=== PATIENT | female | born 1995 | race Caucasian/White ===

== ENCOUNTER 2016-09-11 19:35 | Emergency (ER) | payer OTHER ==
--- NOTE | 2016-09-11 20:27 | UC ---
Complaint Female HPI - HPI Summary HPI Summary: pain and burning with urination for 2 days no fever chills back pain or nausea/ vomiting - History Of Current Complaint Chief Complaint: UCGU Stated Complaint: POSS UTI Time Seen by Provider: 09/11/16 20:19 Hx Obtained From: Patient Hx Last Menstrual Period: 08/13/16 ?: No Onset/Duration: Sudden Onset, Lasting Days - 2, Still Present Timing: Constant Severity Initially: Moderate Severity Currently: Moderate Pain Intensity: 5 Pain Scale Used: 0-10 Numeric Character: Burning Aggravating Factor(s): Urination Alleviating Factor(s): Nothing - Allergies/Home Medications Allergies/Adverse Reactions: Allergies Allergy/AdvReac Type Severity Reaction Status Date / Time No Known Allergies Allergy Verified 03/24/16 14:43 PMH/Surg Hx/FS Hx/Imm Hx Previously Healthy: Yes - Surgical History Surgical History: None - Family History Known Family History: Positive: Other - no FHX of severe allergies or anaphylaxis Negative: Blood Disorder Family History: no known cardio vascular issues in family - Social History Occupation: Employed Full-time Lives: With Family Alcohol Use: Rare Substance Use Type: None Smoking Status (MU): Heavy Every Day Tobacco Smoker Type: Cigarettes Amount Used/How Often: 1 PPD Have You Smoked in the Last Year: Yes Household Exposure Type: Cigarettes Cessation Counseling: Patient Advised to Stop - Immunization History Most Recent Influenza Vaccination: 2014 Most Recent Tetanus Shot: unknown Review of Systems Constitutional: Negative Skin: Negative Eyes: Negative ENT: Negative Respiratory: Negative Cardiovascular: Negative Gastrointestinal: Negative Genitourinary: Dysuria, Frequency, Urgency Motor: Negative Neurovascular: Negative Musculoskeletal: Negative Neurological: Negative Psychological: Negative All Other Systems Reviewed And Are Negative: Yes Physical Exam Triage Information Reviewed: Yes Appearance: Well-Appearing, No Pain Distress, Well-Nourished Vital Signs: Initial Vital Signs Temp 97 F 09/11/16 20:05 Pulse 89 09/11/16 20:05 Resp 17 09/11/16 20:05 Pulse Ox 100 09/11/16 20:05 Vital Signs Reviewed: Yes Eye Exam: Normal Eyes: Positive: Conjunctiva Clear ENT Exam: Normal ENT: Positive: Normal ENT inspection, Hearing grossly normal, Pharynx normal, TMs normal. Negative: Nasal congestion, Nasal drainage, Tonsillar swelling, Tonsillar exudate, Trismus, Muffled/hoarse voice Dental Exam: Normal Neck exam: Normal Neck: Positive: Supple, Nontender Respiratory Exam: Normal Respiratory: Positive: Chest non-tender, Lungs clear, Normal breath sounds, No respiratory distress, No accessory muscle use Cardiovascular Exam: Normal Cardiovascular: Positive: RRR, No Murmur, Pulses Normal, Brisk Capillary Refill Abdominal Exam: Normal Abdomen Description: Negative: No Organomegaly, Soft, CVA Tenderness (R), CVA Tenderness (L) Bowel Sounds: Positive: Present Musculoskeletal Exam: Normal Musculoskeletal: Positive: Strength Intact, ROM Intact, No Edema Neurological Exam: Normal Neurological: Positive: Alert, Muscle Tone Normal Psychological Exam: Normal Skin Exam: Normal Diagnostics - Laboratory Diagnostic Studies Completed/Ordered: + 2 blood and Leuks Complaint Female Dx - Course Course Of Treatment: Bactrim, Azo, increase fluids, follow with pcp prn, culture urine - Differential Dx/Diagnosis Differential Diagnosis/HQI/PQRI: Renal Colic, Sexually Transmitted Disease, Ureteral Stone, Urinary Tract Infection Provider Diagnoses: UTI Discharge - Discharge Plan Condition: Stable Disposition: HOME Prescriptions: Sulfamethox/Trimethoprim DS* [Bactrim DS 800/160 TAB*] 1 tab PO BID #9 tab Patient Education Materials: Phenazopyridine (By mouth), Urinary Tract Infection in Women (ED) Referrals: Praveen Ellsworth MD [Primary Care Provider] - If Needed
[2016-09-11] MEDS ORDERED: Sulfamethox/Trimethoprim DS 800/160* TAB PO ONE (20:46)
[2016-09-11 21:08] VITALS: BP 133/78
== END 2016-09-11 21:08 | disposition home or self-care (01) ==
LOC: UCEAST 19:35
DX: N39.0 Urinary tract infection, site not specified (principal); F17.210 Nicotine dependence, cigarettes, uncomplicated
CPT/HCPCS: 81003; 84702; 87077; 87086; 87186; 99212; A9270-GY; G0463

== ENCOUNTER 2017-03-11 13:01 | Emergency (ER) | payer OTHER ==
[2017-03-11 14:33] VITALS: BP 125/75
--- NOTE | 2017-03-11 15:04 | UC ---
Back Pain HPI - HPI Summary HPI Summary: 22 yo female with a 4 week hx of diarrhea (at least 6 episodes a day) no blood in stool no wt loss no f/c abd feels bloated had severe bilateral mid thoracic pain today (states she almost called 911). Pain has since eased and is now a 4 no abd pain - History of Current Complaint Chief Complaint: UCBackPain Stated Complaint: MID BACK PAIN Hx Obtained From: Patient Hx Last Menstrual Period: 02/13/17 Onset/Duration: Sudden Onset, Lasting Hours Timing: Constant Severity Initially: Severe Severity Currently: Mild Pain Intensity: 4 Pain Scale Used: 0-10 Numeric Back Pain: Is Diffuse - see image Aggravating Factor(s): Movement, Lifting, Bending, Other - deep breath Associated Signs And Symptoms: Negative: Swelling, Redness, Bruising, Fever, Weakness, Numbness, Tingling, Abdominal Pain, Flank Pain, Bladder Incontinence, Bowel Incontinence, Weight Loss, Pain with Weight Bearing - Allergies/Home Medications Allergies/Adverse Reactions: Allergies Allergy/AdvReac Type Severity Reaction Status Date / Time No Known Allergies Allergy Verified 03/11/17 14:33 Home Medications: Home Medications Simvastatin TAB(NF) [Zocor 10 MG (NF)] 1 tab PO DAILY 03/11/17 [History Confirmed 03/11/17] PMH/Surg Hx/FS Hx/Imm Hx Previously Healthy: Yes - Surgical History Surgical History: None - Family History Known Family History: Positive: Hypertension, Other - no FHX of severe allergies or anaphylaxis Negative: Cardiac Disease, Blood Disorder Family History: no known cardio vascular issues in family - Social History Alcohol Use: Rare Substance Use Type: None Smoking Status (MU): Heavy Every Day Tobacco Smoker Type: Cigarettes Amount Used/How Often: 1 PPD Have You Smoked in the Last Year: Yes Household Exposure Type: Cigarettes - Immunization History Most Recent Influenza Vaccination: 12/2016 Most Recent Tetanus Shot: unknown Review of Systems Constitutional: Negative Skin: Negative Eyes: Negative ENT: Negative Respiratory: Negative Cardiovascular: Negative Gastrointestinal: Diarrhea - x 4 weeks Genitourinary: Negative Motor: Negative Neurovascular: Negative Musculoskeletal: Negative Neurological: Negative Psychological: Negative Is Patient Immunocompromised?: No All Other Systems Reviewed And Are Negative: Yes Physical Exam Triage Information Reviewed: Yes Appearance: Well-Appearing, No Pain Distress, Well-Nourished Vital Signs: Initial Vital Signs Temp 97.5 F 03/11/17 14:28 Pulse 82 03/11/17 14:28 Resp 16 03/11/17 14:28 BP 125/75 03/11/17 14:28 Pulse Ox 100 03/11/17 14:28 Vital Signs Reviewed: Yes Eyes: Positive: Conjunctiva Clear ENT: Positive: Hearing grossly normal, Pharynx normal, Uvula midline. Negative : Nasal congestion, Nasal drainage, Tonsillar swelling, Tonsillar exudate, Muffled voice, Hoarse voice, Sinus tenderness Neck exam: Normal Neck: Positive: Supple, Nontender, No Lymphadenopathy Respiratory: Positive: Lungs clear, Normal breath sounds, No respiratory distress, No accessory muscle use Cardiovascular: Positive: RRR, No Murmur Abdomen Description: Positive: Nontender, No Organomegaly, Soft. Negative: Bruit, CVA Tenderness (R), CVA Tenderness (L), Distended, Guarding, Hernia @, Hepatomegaly, McBurney's Point Tenderness, Peritoneal Signs, Pulsatile Mass, Splenomegaly Bowel Sounds: Positive: Present Musculoskeletal: Positive: Strength Intact, ROM Intact, No Edema Neurological: Positive: Alert Psychological Exam: Normal Skin Exam: Normal Back Pain Course/Dx - Differential Dx/Diagnosis Provider Diagnoses: back pain of uncertain cause. chronic diarrhea of uncertain cause Discharge - Discharge Plan Condition: Stable Disposition: HOME Prescriptions: Cyclobenzaprine TAB* [Flexeril TAB*] 5 mg PO TID PRN #15 tab PRN Reason: Spasms Patient Education Materials: Chronic Diarrhea (ED), Back Pain (ED) Forms: *Work Release Referrals: Alberto Walker MD [Medical Doctor] - If Needed (if your stool studies don't reveal a cause for your diarrhea you should see a specialist) Praveen Ellsworth MD [Primary Care Provider] - 1 Week Additional Instructions: tylenol or advil or aleve if needed for back pain a urine culture is pending blood work is pending recheck for new or worsening symptoms see GI specialist re diarrhea if stool studies negative bring in stool for studies Images Front/Back of Body, Lg (Lewis): 1 - pain located here/not tender/Full ROM
[2017-03-11 19:23] LABS: Hematocrit 38 % (35-47); Hemoglobin 12.9 g/dl (12.0-16.0); Mean Corpuscular HGB Conc 34 g/dl (31-36); Mean Corpuscular Hemoglobin 31 pg (27-31); Mean Corpuscular Volume 92 fL (80-97); Mean Platelet Volume 10 um3 (7.4-10.4); Red Blood Count 4.15 10^6/ul (4.0-5.4); Red Cell Distribution Width 13 % (10.5-15); White Blood Count 6.8 10^3/ul (3.5-10.8)
[2017-03-11 19:36] LABS: BUN/Creatinine Ratio 10.7 (8-20); EGFR Non-African American 65.8 (>60); Potassium 3.7 mmol/L (3.5-5.0)
[2017-03-11 19:37] LABS: Calcium 8.7 mg/dL (8.6-10.3); EGFR African American 84.7 (>60)
[2017-03-11 20:48] LABS: Erythrocyte Sed Rate 21 mm/Hr (0-14)
--- NOTE | 2017-03-12 08:03 | PN ---
Progress Note - Progress Note Date of Service: 03/11/17 Note: I called patient to follow up for the creatinine of 1.03 given her age. She reports she feel better. Instructed patient to follow up with her PMD. She was given a container for stool, and I instructed her to come with stool sample as soon as possible.
== END 2017-03-11 16:10 | disposition home or self-care (01) ==
LOC: UCEAST 13:01
DX: M54.6 Pain in thoracic spine (principal); K52.9 Noninfective gastroenteritis and colitis, unspecified; Z72.0 Tobacco use
CPT/HCPCS: 36415; 80048; 81003; 85025; 85652; 87086; 99212; G0463

== ENCOUNTER 2018-02-02 07:02 | Emergency (ER) | payer BC, OTHER ==
[2018-02-02 07:17] VITALS: BP 131/84
--- NOTE | 2018-02-02 07:23 | UC ---
Respiratory Complaint HPI - HPI Summary HPI Summary: The patient is a 22-year-old female who has been ill for over 2 weeks. She states her symptoms initially started like a common cold with some nasal congestion and cough. She has since developed some chest tightness and wheezing. She denies any fever but she has had chills.'s a history of bronchitis and is a smoker. When she does bring up phlegm it is brown in color. He rates it for the past tonight's she has been coughing so hard she has vomited. She has no nausea. She has been wheezing. - History of Current Complaint Chief Complaint: UCRespiratory Stated Complaint: COUGH VOMITING RESP ISSUE Time Seen by Provider: 02/02/18 07:18 Hx Obtained From: Patient Hx Last Menstrual Period: 3 months Onset/Duration: Gradual Onset, Lasting Weeks Timing: Constant Severity Initially: Mild Severity Currently: Moderate Pain Intensity: 4 Pain Scale Used: 0-10 Numeric Character: Cough: Productive Aggravating Factors: Nothing Alleviating Factors: Spontaneous Resolution Associated Signs And Symptoms: Positive: Wheezing, Nasal Congestion, Hoarseness Related History: Similar Episode/Dx as: - Bronchitis - Allergies/Home Medications Allergies/Adverse Reactions: Allergies Allergy/AdvReac Type Severity Reaction Status Date / Time No Known Allergies Allergy Verified 02/02/18 07:10 PMH/Surg Hx/FS Hx/Imm Hx Previously Healthy: Yes Respiratory History: Bronchitis - Surgical History Surgical History: None - Family History Known Family History: Positive: Hypertension, Other - no FHX of severe allergies or anaphylaxis Negative: Cardiac Disease, Blood Disorder Family History: no known cardio vascular issues in family - Social History Alcohol Use: Weekly Substance Use Type: None Smoking Status (MU): Light Every Day Tobacco Smoker Type: Cigarettes Amount Used/How Often: 1 PPD Have You Smoked in the Last Year: Yes Household Exposure Type: Cigarettes - Immunization History Most Recent Influenza Vaccination: 12/2016 Most Recent Tetanus Shot: unknown Review of Systems Constitutional: Chills, Fatigue Skin: Negative Eyes: Negative ENT: Nasal Discharge Respiratory: Cough Cardiovascular: Negative Gastrointestinal: Vomiting Genitourinary: Negative Motor: Negative Neurovascular: Negative Musculoskeletal: Negative Neurological: Negative Psychological: Negative Is Patient Immunocompromised?: No All Other Systems Reviewed And Are Negative: Yes Physical Exam Triage Information Reviewed: Yes Appearance: Well-Appearing, No Pain Distress, Well-Nourished Vital Signs: Initial Vital Signs Temp 97.4 F 02/02/18 07:12 Pulse 96 02/02/18 07:12 Resp 18 02/02/18 07:12 BP 131/84 02/02/18 07:12 Pulse Ox 98 02/02/18 07:12 Vital Signs Reviewed: Yes Eyes: Positive: Conjunctiva Clear ENT: Positive: Hearing grossly normal, Pharynx normal, Nasal congestion, Hoarse voice. Negative: Nasal drainage, Trismus, Muffled voice, Sinus tenderness Neck: Positive: Supple, Nontender, No Lymphadenopathy Respiratory: Positive: Normal breath sounds, No respiratory distress, No accessory muscle use, Wheezing Cardiovascular: Positive: RRR Musculoskeletal: Positive: ROM Intact, No Edema Neurological: Positive: Alert Psychological Exam: Normal Skin Exam: Normal UC Diagnostic Evaluation - Laboratory O2 Sat by Pulse Oximetry: 98 - normal/not hypoxic - Radiology Radiology Interpretation Completed By: Radiologist Summary of Radiographic Findings: NAD Respiratory Course/Dx - Differential Dx/Diagnosis Provider Diagnoses: acute bronchitis with bronchospasm Discharge - Sign-Out/Discharge Documenting (check all that apply): Patient Departure All imaging exams completed and their final reports reviewed: Yes - Discharge Plan Condition: Stable Disposition: HOME Prescriptions: Amoxicillin PO (*) [Amoxicillin 875 MG (*)] 875 mg PO BID #14 tab predniSONE [Deltasone 20 MG TAB] 40 mg PO DAILY #10 tab Patient Education Materials: Acute Bronchitis (ED) Forms: *Gen. Provider Communication Referrals: Praveen Ellsworth MD [Primary Care Provider] - - Billing Disposition and Condition Condition: STABLE Disposition: Home
[2018-02-02] MEDS ORDERED: predniSONE TAB* 20 MG PO ONE (08:00)
[2018-02-02] MEDS ORDERED: Albuterol HFA INHALER* 8 gm MDI INH ONE (08:00)
--- NOTE | 2018-02-02 08:06 | RAD ---
INDICATION: Cough. COMPARISON: There are no relevant prior studies available for comparison. TECHNIQUE: Dual-energy PA and lateral views of the chest were obtained. FINDINGS: The heart is within normal limits in size. Mediastinal and hilar contours appear within normal limits. The lungs are clear. No pleural effusion is present. IMPRESSION: NO EVIDENCE FOR ACTIVE CARDIOPULMONARY DISEASE.
== END 2018-02-02 08:18 | disposition home or self-care (01) ==
LOC: UCEAST 07:02
DX: J20.9 Acute bronchitis, unspecified (principal); F17.210 Nicotine dependence, cigarettes, uncomplicated
CPT/HCPCS: 71046; 99212; A9270-GY; G0463; J7512